=== PATIENT | male | born 1990 | race Caucasian/White ===

== ENCOUNTER 2022-05-19 20:14 | Emergency (ER) | payer OTHER ==
[2022-05-19 20:33] VITALS: TEMP 97.3
[2022-05-19] MEDS ORDERED: SODIUM CHLORIDE 0.9% 1,000 ML IV STA (21:20)
[2022-05-19] MEDS ORDERED: ONDANSETRON 4 MG/2 ML VIAL IVP STA (21:21)
[2022-05-19 21:57] LABS: Basophils # (A) 0.1 k/uL (0-0.2); Basophils % (A) 0 %; Eosinophils # (A) 0.2 k/uL (0-0.7); Eosinophils % (A) 1 %; HCT 44.5 % (39.0-53.0); HGB 14.8 gm/dL (13.0-17.5); Lymphocytes # (A) 0.9 k/uL (1.0-4.8); Lymphocytes % (A) 6 %; MCH 28.6 pg (25.0-35.0); MCHC 33.3 g/dL (31.0-37.0); MCV 85.8 fL (80.0-100.0); Mean Platelet Volume 7.7; Monocytes # (A) 0.8 k/uL (0-1.0); Monocytes % (A) 5 %; Neutrophils # (A) 13.7 k/uL (1.3-7.7); Neutrophils % (A) 87 %; Platelet Count 241 k/uL (150-450); RBC 5.19 m/uL (4.30-5.90); RDW 13.6 % (11.5-15.5); WBC 15.7 k/uL (3.8-10.6)
--- NOTE | 2022-05-19 22:06 | XR ---
EXAMINATION TYPE: XR chest 2V DATE OF EXAM: 05/19/2022 COMPARISON: NONE HISTORY: Syncope TECHNIQUE: 2 views FINDINGS: Heart and mediastinum are normal. Lungs are clear. Diaphragm is normal. Bony thorax is inta ct IMPRESSION: Normal chest.
[2022-05-19 22:08] LABS: ALT 67 U/L (4-49); AST 34 U/L (17-59); African American GFR (CKD) >90 (>60 ml/min/1.73 sqM); Albumin 4.2 g/dL (3.5-5.0); Alkaline Phosphatase 71 U/L (38-126); Anion Gap 6 mmol/L; Blood Urea Nitrogen 17 mg/dL (9-20); Calcium 8.7 mg/dL (8.4-10.2); Carbon Dioxide 25 mmol/L (22-30); Chloride 107 mmol/L (98-107); Glucose 95 mg/dL (74-99); Non-African American GFR(CKD) 89 (>60 ml/min/1.73 sqM); Potassium 4.1 mmol/L (3.5-5.1); Sodium 138 mmol/L (137-145); Total Bilirubin 0.4 mg/dL (0.2-1.3); Total Protein 7.1 g/dL (6.3-8.2)
[2022-05-19 22:18] LABS: Prothrombin Time 10.9 sec (9.0-12.0)
[2022-05-19 22:19] LABS: Partial Thromboplastin Time 18.7 sec (22.0-30.0)
[2022-05-19] MEDS ORDERED: ONDANSETRON 4 MG ODT STARTER PACK 2 TAB BTL PO STA (22:46)
--- NOTE | 2022-05-19 22:46 | ED ---
General Adult HPI - General Chief complaint: Syncope Stated complaint: Dizziness Time Seen by Provider: 05/19/22 21:00 Source: patient Mode of arrival: EMS Limitations: no limitations - History of Present Illness Initial comments: 32-year-old male presents emergency room and after he had a syncopal episode. States that [place] when he passed out. States that he was on a bench when it happened. He felt very dizzy and then went unconscious. Patient denies injuring himself. He was only out for a few seconds. When he came to, he was extremely nauseated and vomited. States that he has not been eating or drinking well for the past several days. He denies any headaches or visual changes. No chest pain or shortness of breath. No abdominal pain. No history of cardiac disease. No family history of sudden cardiac . No other alleviating, precipitating or modifying factors - Related Data Home Medications Medication Instructions Recorded Confirmed No Known Home Medications 05/19/22 05/19/22 Allergies Allergy/AdvReac Type Severity Reaction Status Date / Time No Known Allergies Allergy Unverified 05/19/22 21:29 Review of Systems ROS Statement: Those systems with pertinent positive or pertinent negative responses have been documented in the HPI. ROS Other: All systems not noted in ROS Statement are negative. Past Medical History Past Medical History: No Reported History History of Any Multi-Drug Resistant Organisms: None Reported Past Surgical History: No Surgical Hx Reported Past Psychological History: No Psychological Hx Reported General Exam Limitations: no limitations General appearance: alert, in no apparent distress Head exam: Present: atraumatic, normocephalic, normal inspection Eye exam: Present: normal appearance, PERRL, EOMI. Absent: scleral icterus, conjunctival injection, periorbital swelling ENT exam: Present: normal exam, mucous membranes moist Neck exam: Present: normal inspection. Absent: tenderness, meningismus, lymphadenopathy Respiratory exam: Present: normal lung sounds bilaterally. Absent: respiratory distress, wheezes, rales, rhonchi, stridor Cardiovascular Exam: Present: regular rate, normal rhythm, normal heart sounds. Absent: systolic murmur, diastolic murmur, rubs, gallop, clicks GI/Abdominal exam: Present: soft, normal bowel sounds. Absent: distended, te nderness, guarding, rebound, rigid Extremities exam: Present: normal inspection, full ROM, normal capillary refill. Absent: tenderness, pedal edema, joint swelling, calf tenderness Back exam: Present: normal inspection Neurological exam: Present: alert, oriented X3, CN II-XII intact Psychiatric exam: Present: normal affect, normal mood Skin exam: Present: warm, dry, intact, normal color. Absent: rash Course Vital Signs 05/19/22 05/19/22 20:30 23:15 Temperature 97.3 F L Pulse Rate 80 89 Respiratory 14 20 Rate Blood Pressure 127/87 131/97 O2 Sat by Pulse 99 98 Oximetry EKG Findings - EKG Comments: EKG Findings:: EKG demonstrates sinus rhythm with a rate of 76. IL interval 156. QRS 96. QTC of 425. No acute ST segment elevations or depressions. No signs of Ozhbr-Otuckzggh-Iizss or Brugada syndrome Medical Decision Making - Medical Decision Making Upon arrival the patient was placed into a trauma 1. A thorough history and physical exam was performed. IV access established laboratory studies were conducted. Patient is given something for nausea. Evidently studies are conducted and reviewed. Chest x-rays performed. Results are discussed with the patient. He states he feels improved at this time and feels comfortable going home. He is instructed to follow up with any new or worsening symptoms. Patient was agreeable and discharged home in stable condition - Lab Data Result diagrams: 05/19/22 21:46 05/19/22 21:46 Lab Results 05/19/22 05/19/22 05/19/22 Range/Units 21:46 21:46 21:46 WBC 15.7 H (3.8-10.6) k/uL RBC 5.19 (4.30-5.90) m/uL Hgb 14.8 (13.0-17.5) gm/dL Hct 44.5 (39.0-53.0) % MCV 85.8 (80.0-100.0) fL MCH 28.6 (25.0-35.0) pg MCHC 33.3 (31.0-37.0) g/dL RDW 13.6 (11.5-15.5) % Plt Count 241 (150-450) k/uL MPV 7.7 Neutrophils % 87 % Lymphocytes % 6 % Monocytes % 5 % Eosinophils % 1 % Basophils % 0 % Neutrophils # 13.7 H (1.3-7.7) k/uL Lymphocytes # 0.9 L (1.0-4.8) k/uL Monocytes # 0.8 (0-1.0) k/uL Eosinophils # 0.2 (0-0.7) k/uL Basophils # 0.1 (0-0.2) k/uL PT 10.9 (9.0-12.0) sec INR 1.0 (<1.2) APTT 18.7 L (22.0-30.0) sec Sodium 138 (137-145) mmol/L Potassium 4.1 (3.5-5.1) mmol/L Chloride 107 (98-107) mmol/L Carbon Dioxide 25 (22-30) mmol/L Anion Gap 6 mmol/L BUN 17 (9-20) mg/dL Creatinine 1.10 (0.66-1.25) mg/dL Est GFR (CKD-EPI)AfAm >90 (>60 ml/min/1.73 sqM) Est GFR (CKD-EPI)NonAf 89 (>60 ml/min/1.73 sqM) Glucose 95 (74-99) mg/dL Calcium 8.7 (8.4-10.2) mg/dL Total Bilirubin 0.4 (0.2-1.3) mg/dL AST 34 (17-59) U/L ALT 67 H (4-49) U/L Alkaline Phosphatase 71 (38-126) U/L Troponin I (0.000-0.034) ng/mL Total Protein 7.1 (6.3-8.2) g/dL Albumin 4.2 (3.5-5.0) g/dL 05/19/22 Range/Units 21:46 WBC (3.8-10.6) k/uL RBC (4.30-5.90) m/uL Hgb (13.0-17.5) gm/dL Hct (39.0-53.0) % MCV (80.0-100.0) fL MCH (25.0-35.0) pg MCHC (31.0-37.0) g/dL RDW (11.5-15.5) % Plt Count (150-450) k/uL MPV Neutrophils % % Lymphocytes % % Monocytes % % Eosinophils % % Basophils % % Neutrophils # (1.3-7.7) k/uL Lymphocytes # (1.0-4.8) k/uL Monocytes # (0-1.0) k/uL Eosinophils # (0-0.7) k/uL Basophils # (0-0.2) k/uL PT (9.0-12.0) sec INR (<1.2) APTT (22.0-30.0) sec Sodium (137-145) mmol/L Potassium (3.5-5.1) mmol/L Chloride (98-107) mmol/L Carbon Dioxide (22-30) mmol/L Anion Gap mmol/L BUN (9-20) mg/dL Creatinine (0.66-1.25) mg/dL Est GFR (CKD-EPI)AfAm (>60 ml/min/1.73 sqM) Est GFR (CKD-EPI)NonAf (>60 ml/min/1.73 sqM) Glucose (74-99) mg/dL Calcium (8.4-10.2) mg/dL Total Bilirubin (0.2-1.3) mg/dL AST (17-59) U/L ALT (4-49) U/L Alkaline Phosphatase (38-126) U/L Troponin I <0.012 (0.000-0.034) ng/mL Total Protein (6.3-8.2) g/dL Albumin (3.5-5.0) g/dL Disposition Clinical Impression: Syncope and collapse Disposition: HOME SELF-CARE Condition: Stable Instructions (If sedation given, give patient instructions): Syncope (ED) Additional Instructions: Increase your fluid intake. Follow up with your primary care doctor in 2-4 days and return for any new or worsening symptoms Is patient prescribed a controlled substance at d/c from ED?: No Referrals: None,Stated [Primary Care Provider] - 1-2 days Time of Disposition: 22:46
[2022-05-19 23:16] VITALS: BP 131/97; PULSE 89; RESP 20
== END 2022-05-19 23:16 | disposition home or self-care (01) ==
LOC: EC 20:14
DX: R55 Syncope and collapse (principal)
CPT/HCPCS: 36415; 93005; 80053; 84484; 85025; 85610; 85730; 71046; 99285; 96374; 96361; J2405; S0119

== ENCOUNTER 2024-01-15 15:43 | Observation (INO) | payer OTHER ==
--- NOTE | 2024-01-15 16:05 | ED ---
General Adult HPI - General Stated complaint: Syncope/cardiac issues Time Seen by Provider: 01/15/24 15:49 Source: patient, EMS, RN notes reviewed, old records reviewed Limitations: no limitations - History of Present Illness Initial comments: 33-year-old male presenting with an episode of syncope. Patient states he did donate plasma earlier today. He had gone home when he began feeling lightheaded. He had passed out. When he awoke he felt nausea and had 1 episode of vomiting. No chest pain. He states he has had episodes similar to this in the past associated with donating plasma. During transport paramedics states he had several episodes where he became diaphoretic and had an episode of v entricular fibrillation. He remained alert during this but was symptomatic. No prior history of arrhythmia. He had a similar episode during transport where he was noted to be bradycardic. Uncertain if the ventricular fibrillation was artifact. - Related Data Home Medications Medication Instructions Recorded Confirmed No Known Home Medications 05/19/22 01/15/24 Allergies Allergy/AdvReac Type Severity Reaction Status Date / Time No Known Allergies Allergy Verified 01/15/24 16:16 Review of Systems ROS Statement: Those systems with pertinent positive or pertinent negative responses have been documented in the HPI. ROS Other: All systems not noted in ROS Statement are negative. Past Medical History Past Medical History: No Reported History History of Any Multi-Drug Resistant Organisms: None Reported Past Surgical History: No Surgical Hx Reported Past Psychological History: No Psychological Hx Reported General Exam General appearance: alert, in no apparent distress Head exam: Present: atraumatic, normocephalic Eye exam: Present: normal appearance, PERRL ENT exam: Present: normal exam Neck exam: Present: normal inspection. Absent: tenderness, meningismus Respiratory exam: Present: normal lung sounds bilaterally. Absent: respiratory distress, wheezes Cardiovascular Exam: Present: regular rate, normal rhythm GI/Abdominal exam: Present: soft. Absent: distended, tenderness Extremities exam: Present: normal inspection, normal capillary refill Neurological exam: Present: alert, oriented X3, CN II-XII intact. Absent: motor sensory deficit Psychiatric exam: Present: normal affect, normal mood Skin exam: Present: warm, dry, intact Course Vital Signs 01/15/24 01/15/24 15:43 16:28 Pulse Rate 81 62 Respiratory 16 20 Rate Blood Pressure 105/92 115/63 O2 Sat by Pulse 98 97 Oximetry Medical Decision Making - Medical Decision Making Was pt. sent in by a medical professional or institution ([facility]re[facility], [employer]WORK ENGINEER, urgent care, hospital, or snf...) When possible be specific @ -No Did you speak to anyone other than the patient for history (EMS, parent, family, police, friend...)? What history was obtained from this source @ -No Did you review nursing and triage notes (agree or disagree)? Why? @ -I reviewed and agree with nursing and triage notes Were old charts reviewed (outside hosp., previous admission, EMS record, old EKG, old radiological studies, urgent care reports/EKG's, snf records)? Report findings @ -No old charts were reviewed Differential Diagnosis (chest pain, altered mental status, abdominal pain women, abdominal pain men, vaginal bleeding, weakness, fever, dyspnea, syncope, headache, dizziness, GI bleed, back pain, seizure, CVA, palpatations, mental health, musculoskeletal)? @Differential Syncope: Valvular disease, hypertrophic cardiomyopathy, pulmonary embolism, tamponade, tachycardia, bradycardia, FL, hypovolemia, hemorrhage, dissection, anemia, intracranial hemorrhage, seizure, hypoglycemia, carbon monoxide poisoning, this is not meant to be an all-inclusive list. EKG interpreted by me (3pts min.). @ -Sinus rhythm rate of 66, TN interval 159, QRS duration 90, QTc [address] segment elevation. T waves are upright. X-rays interpreted by me (1pt min.). @Chest x-ray negative for acute cardiopulmonary findings. CT interpreted by me (1pt min.). @ -None done U/S interpreted by me (1pt. min.). @ -None done What testing was considered but not performed or refused? (CT, X-rays, U/S, labs)? Why? @ -None What meds were considered but not given or refused? Why? @ -None Did you discuss the management of the patient with other professionals (professionals i.e. [facility] Contreras, [employer] SAL[employer]WORK ENGINEER, lab, RT, psych nurse, aids social worker, row boss, teacher, business services officer, case repairer)? Give summary @Discussed with Dr. Elvin davison for cardiology, recommends echo and telemetry monitoring. Patient admitted to Dr. Crews. Was smoking cessation discussed for >3mins.? @ -No Was critical care preformed (if so, how long)? @ -No Were there social determinants of health that impacted care today? How? (Homelessness, low income, unemployed, alcoholism, drug addiction, transportation, low edu. Level, literacy, decrease access to med. care, residential, rehab)? @ -No Was there de-escalation of care discussed even if they declined (Discuss DNR or withdrawal of care, Hospice)? DNR status @ -No What co-morbidities impacted this encounter? (DM, HTN, Smoking, COPD, CAD, Cancer, CVA, ARF, Chemo, Hep., AIDS, mental health diagnosis, sleep apnea, morbid obesity)? @ -None Was patient admitted / discharged? Hospital course, mention meds given and route, prescriptions, significant lab abnormalities, going to OR and other pertinent info. @ -33-year-old male with syncopal episode after donating plasma. Patient was thought by paramedics to possibly be in a ventricular fibrillation. They state that he was symptomatic but alert during this episode. This may be artifactual. Patient will be monitored on telemetry to ensure no further arrhythmia. He remains in sinus rhythm throughout his stay in the emergency department with several episodes of lightheadedness and nausea vomiting. He has no chest pain. Chest x-ray is clear without acute findings. He has a elevated hemoglobin I suspect this is from dehydration. Normal electrolytes, negative initial tropo zane. I did discuss case with cardiology and the admitting physician. Undiagnosed new problem with uncertain prognosis? @ -No Drug Therapy requiring intensive monitoring for toxicity (Heparin, Nitro, Insulin, Cardizem)? @ -No Were any procedures done? @ -No Diagnosis/symptom? @ -Syncope, dehydration, possible arrhythmia Acute, or Chronic, or Acute on Chronic? @ -Acute Uncomplicated (without systemic symptoms) or Complicated (systemic symptoms)? @ -Default Side effects of treatment? @ -No Exacerbation, Progression, or Severe Exacerbation? @ -No Poses a threat to life or bodily function? How? (Chest pain, USA, FL, pneumonia, PE, COPD, DKA, ARF, appy, cholecystitis, CVA, Diverticulitis, Homicidal, Suicidal, threat to staff... and all critical care pts) @ -Yes, syncope, arrhythmia - Lab Data Result diagrams: 01/15/24 15:29 01/15/24 15:29 Lab Results 01/15/24 01/15/24 01/15/24 Range/Units 15:29 15:29 15:29 WBC 6.2 (3.8-10.6) k/uL RBC 6.29 H (4.30-5.90) m/uL Hgb 17.9 H (13.0-17.5) gm/dL Hct 53.5 H (39.0-53.0) % MCV 85.1 (80.0-100.0) fL MCH 28.4 (25.0-35.0) pg MCHC 33.4 (31.0-37.0) g/dL RDW 13.6 (11.5-15.5) % Plt Count 313 (150-450) k/uL MPV 8.5 Neutrophils % 52 % Lymphocytes % 31 % Monocytes % 7 % Eosinophils % 5 % Basophils % 1 % Neutrophils # 3.3 (1.3-7.7) k/uL Lymphocytes # 1.9 (1.0-4.8) k/uL Monocytes # 0.4 (0-1.0) k/uL Eosinophils # 0.3 (0-0.7) k/uL Basophils # 0.1 (0-0.2) k/uL PT 11.1 (10.0-12.5) sec INR 1.0 (<1.2) APTT 21.6 L (22.0-30.0) sec Sodium 140 (137-145) mmol/L Potassium 5.2 H (3.5-5.1) mmol/L Chloride 114 H (98-107) mmol/L Carbon Dioxide 17 L (22-30) mmol/L Anion Gap 9 mmol/L BUN 17 (9-20) mg/dL Creatinine 0.90 (0.66-1.25) mg/dL Est GFR (CKD-EPI)AfAm >90 (>60 ml/min/1.73 sqM) Est GFR (CKD-EPI)NonAf >90 (>60 ml/min/1.73 sqM) Glucose 114 H (74-99) mg/dL Calcium 8.8 (8.4-10.2) mg/dL Magnesium 1.7 (1.6-2.3) mg/dL Total Bilirubin 0.9 (0.2-1.3) mg/dL AST 32 (17-59) U/L ALT 25 (4-49) U/L Alkaline Phosphatase 50 (38-126) U/L Troponin I (0.000-0.034) ng/mL Total Protein 6.4 (6.3-8.2) g/dL Albumin 3.9 (3.5-5.0) g/dL 01/15/24 Range/Units 15:29 WBC (3.8-10.6) k/uL RBC (4.30-5.90) m/uL Hgb (13.0-17.5) gm/dL Hct (39.0-53.0) % MCV (80.0-100.0) fL MCH (25.0-35.0) pg MCHC (31.0-37.0) g/dL RDW (11.5-15.5) % Plt Count (150-450) k/uL MPV Neutrophils % % Lymphocytes % % Monocytes % % Eosinophils % % Basophils % % Neutrophils # (1.3-7.7) k/uL Lymphocytes # (1.0-4.8) k/uL Monocytes # (0-1.0) k/uL Eosinophils # (0-0.7) k/uL Basophils # (0-0.2) k/uL PT (10.0-12.5) sec INR (<1.2) APTT (22.0-30.0) sec Sodium (137-145) mmol/L Potassium (3.5-5.1) mmol/L Chloride (98-107) mmol/L Carbon Dioxide (22-30) mmol/L Anion Gap mmol/L BUN (9-20) mg/dL Creatinine (0.66-1.25) mg/dL Est GFR (CKD-EPI)AfAm (>60 ml/min/1.73 sqM) Est GFR (CKD-EPI)NonAf (>60 ml/min/1.73 sqM) Glucose (74-99) mg/dL Calcium (8.4-10.2) mg/dL Magnesium (1.6-2.3) mg/dL Total Bilirubin (0.2-1.3) mg/dL AST (17-59) U/L ALT (4-49) U/L Alkaline Phosphatase (38-126) U/L Troponin I 0.013 (0.000-0.034) ng/mL Total Protein (6.3-8.2) g/dL Albumin (3.5-5.0) g/dL Critical Care Time Critical Care Time: Yes Total Critical Care Time: 35 Disposition Clinical Impression: Syncope, Dehydration Disposition: ADMITTED IP TO THIS [facility] Condition: Stable Is patient prescribed a controlled substance at d/c from ED?: No Referrals: None,Stated [Primary Care Provider] - 1-2 days Time of Disposition: 16:58
[2024-01-15] MEDS: ONDANSETRON 4 MG/2 ML VIAL IVP STA (16:12)
[2024-01-15] MEDS: SODIUM CHLORIDE 0.9% 500 ML 500 ML IV STA (16:13)
[2024-01-15] MEDS: SODIUM CHLORIDE 0.9% 500 ML 500 ML IV ONE (16:13)
[2024-01-15 16:26] LABS: ALT 25 U/L (4-49); AST 32 U/L (17-59); African American GFR (CKD) >90 (>60 ml/min/1.73 sqM); Albumin 3.9 g/dL (3.5-5.0); Alkaline Phosphatase 50 U/L (38-126); Anion Gap 9 mmol/L; Blood Urea Nitrogen 17 mg/dL (9-20); Calcium 8.8 mg/dL (8.4-10.2); Carbon Dioxide 17 mmol/L (22-30); Chloride 114 mmol/L (98-107); Glucose 114 mg/dL (74-99); Magnesium 1.7 mg/dL (1.6-2.3); Non-African American GFR(CKD) >90 (>60 ml/min/1.73 sqM); Sodium 140 mmol/L (137-145); Total Bilirubin 0.9 mg/dL (0.2-1.3); Total Protein 6.4 g/dL (6.3-8.2)
[2024-01-15 16:31] LABS: Basophils # (A) 0.1 k/uL (0-0.2); Basophils % (A) 1 %; Eosinophils # (A) 0.3 k/uL (0-0.7); Eosinophils % (A) 5 %; HCT 53.5 % (39.0-53.0); HGB 17.9 gm/dL (13.0-17.5); Lymphocytes # (A) 1.9 k/uL (1.0-4.8); Lymphocytes % (A) 31 %; MCH 28.4 pg (25.0-35.0); MCHC 33.4 g/dL (31.0-37.0); MCV 85.1 fL (80.0-100.0); Mean Platelet Volume 8.5; Monocytes # (A) 0.4 k/uL (0-1.0); Monocytes % (A) 7 %; Neutrophils # (A) 3.3 k/uL (1.3-7.7); Neutrophils % (A) 52 %; Platelet Count 313 k/uL (150-450); RBC 6.29 m/uL (4.30-5.90); RDW 13.6 % (11.5-15.5); WBC 6.2 k/uL (3.8-10.6)
[2024-01-15 16:37] LABS: Prothrombin Time 11.1 sec (10.0-12.5)
[2024-01-15 16:41] LABS: Potassium 5.2 mmol/L (3.5-5.1)
[2024-01-15 16:42] LABS: Partial Thromboplastin Time 21.6 sec (22.0-30.0)
[2024-01-15] MEDS: LORazepam 2 MG/ML INJ IV STA (16:47)
[2024-01-15] MEDS ORDERED: NALOXONE 0.4 MG/ML 1 ML VIAL IV PRN (16:58)
[2024-01-15] MEDS ORDERED: ACETAMINOPHEN TAB 325 MG TAB PO PRN (16:58)
--- NOTE | 2024-01-15 18:32 | CA ---
Transthoracic Echo Report Name: Albert Mann Age: 33 Gender: M : 1990 Exam Date: 01/15/2024 16:59 Exam Location: [place] [facility] Ht (in): 69 Wt (lb): 220 Ordering Physician: Juan Perdomo MD Attending/Referring Phys: [id number], Conor Greens Tier Mary Echols RCS Procedure CPT: Indications: Syncope Cardiac Hx: Technical Quality: Fair Contrast 1: Total Dose (mL): Contrast 2: Total Dose (mL): MEASUREMENTS (Male / Female) Normal Values 2D ECHO LV Diastolic Diameter PLAX 4.0 cm 4.2 - 5.9 / 3.9 - 5.3 cm LV Systolic Diameter PLAX 2.8 cm IVS Diastolic Thickness 0.9 cm 0.6 - 1.0 / 0.6 - 0.9 cm LVPW Diastolic Thickness 0.9 cm 0.6 - 1.0 / 0.6 - 0.9 cm LV Relative Wall Thickness 0.5 RV Internal Dim ED PLAX 3.1 cm LVOT Diameter 2.1 cm LV Diastolic Volume MOD BP 86.0 cm??? 67 - 155 / 56 - 104 cm??? LV Systolic Volume MOD BP 33.3 cm??? 22 - 58 / 19 - 49 cm??? LV Ejection Fraction MOD BP 61.3 % >= 55 % LV Cardiac Index MOD BP 1603.6 cm???/min???m??? LV Diastolic Volume MOD 4C 90.5 cm??? LV Systolic Volume MOD 4C 33.6 cm??? LV Ejection Fraction MOD 4C 62.8 % LV Cardiac Index MOD 4C 1728.4 cm???/min???m??? LV Diastolic Length 4C 8.8 cm LV Systolic Length 4C 7.6 cm LV Diastolic Volume MOD 2C 79.6 cm??? LV Systolic Volume MOD 2C 32.0 cm??? LV Ejection Fraction MOD 2C 59.8 % LV Cardiac Index MOD 2C 1448.1 cm???/min???m??? LV Diastolic Length 2C 9.1 cm LV Systolic Length 2C 7.9 cm LA Volume 29.7 cm??? 18 - 58 / 22 - 52 cm??? LA Volume Index 13.3 cm???/m??? 16 - 28 cm???/m??? DOPPLER AV Peak Velocity 104.9 cm/s AV Peak Gradient 4.4 mmHg AV Mean Velocity 72.5 cm/s AV Mean Gradient 2.4 mmHg AV Velocity Time Integral 21.1 cm LVOT Peak Velocity 98.5 cm/s LVOT Peak Gradient 3.9 mmHg LVOT Velocity Time Integral 19.2 cm LVOT Stroke Volume 66.7 cm??? LVOT Stroke Volume Index 31.0 ml/m??? LVOT Cardiac Index 2029.1 cm???/min???m??? AV Area Cont Eq vti 3.2 cm??? AV Area Cont Eq pk 3.3 cm??? MV Area PHT 3.8 cm??? Mitral E Point Velocity 63.3 cm/s Mitral A Point Velocity 40.7 cm/s Mitral E to A Ratio 1.6 MV Deceleration Time 202.0 ms PV Peak Velocity 99.0 cm/s PV Peak Gradient 3.9 mmHg FINDINGS Left Ventricle Left ventricular ejection fraction is estimated at 60-65 %. Left ventricular cavity size normal. Left ventricular wall thickness normal. No obvious regional wall motion abnormalities. Right Ventricle Normal right ventricular size and function. Unable to estimate right ventricular systolic function. Right Atrium Normal right atrial size by visual. Left Atrium Normal left atrial size. Mitral Valve Structurally normal mitral valve. No evidence for mitral valve prolapse. No mitral stenosis. No mitral regurgitation. Aortic Valve Trileaflet aortic valve. No aortic stenosis. No aortic regurgitation. Tricuspid Valve Structurally normal tricuspid valve. No tricuspid stenosis. Trace tricuspid regurgitation. Pulmonic Valve Structurally normal pulmonic valve. No pulmonic stenosis. Trace pulmonic regurgitation. Pericardium No pericardial effusion. Aorta Normal size aortic root and proximal ascending aorta. CONCLUSIONS Normal LV size and systolic function. LVEF 65% No obvious regional wall motion abnormality Normal RV size and systolic function. No significant valve dysfunction No pericardial effusion Previewed by: Dr Dl Oconnor (Electronically Signed) Final Date: 15 January 2024 18:32
[2024-01-15] MEDS: SODIUM CHLORIDE 0.9% 1,000 ML IV SCH (19:32)
--- NOTE | 2024-01-15 20:12 | XR ---
EXAMINATION TYPE: XR chest 1V portable DATE OF EXAM: 01/15/2024 COMPARISON: 05/19/2022 INDICATION: Syncope TECHNIQUE: Single frontal view of the chest is obtained. FINDINGS: The heart size is normal. The pulmonary vasculature is normal. The lungs are clear. IMPRESSION: 1. No acute pulmonary process.
[2024-01-15 22:49] VITALS: TEMP 98
[2024-01-16 08:22] VITALS: RESP 20
--- NOTE | 2024-01-16 08:31 | P.CRDCN ---
History of Present Illness Consult date: 01/16/24 History of present illness: HISTORY OF PRESENTING ILLNESS 33-year-old male with no significant past medical history presented to the ER because of a brief syncopal episode while doing plasma donation. Patient reports by the end of plasma donation he was feeling lightheaded and briefly passed out. The lasting he remembers was asking the nurse to help him get up, and the next and he remembers is the nurse standing at the head end of the bed helping him. He reported that he must have passed out for less than a minute. He did not have any palpitations before and after the event. He denied having any chest pain chest pressure. Patient reported that he has donated plasma in the past and he has had an episode of lightheadedness and a brief syncopal episode at that time. During transport EMS reported that patient had few instances of having diaphoresis and feeling uncomfortable and moving. ECG prescription reported ventricular fibrillation. Patient never lost pulse. There was no reported CPR done. I did not find any rhythm strips to review but from ER physicians description the looked more like artifact. I performed an echocardiogram which did not show any concerns of LVOT obstruction no concerns of hypertrophic cardiomyopathy or ARVD. His ECG sinus rhythm with no concerns of Brugada or long QT syndrome. Patient denies any family history of premature coronary artery disease or sudden cardiac . He denies any childhood long-term illness. Is never passed out while playing sports. His labs were normal other than hemoglobin 17.9. This could be due to dehydration. OF SYSTEMS 14 point review of system is negative except what is mentioned above in HPI. PHYSICAL EXAMINATION Vital signs reviewed. Head: Normocephalic. Eyes: Sclerae nonicteric. Neck: Brisk carotid upstroke, no jugular venous distention. Lungs: Clear to auscultation. Heart: Regular rate and rhythm, S1-S2, no S3, no murmur or rub. Abdomen: Soft nontender, positive bowel sounds. Extremities: No edema, intact distal pulses. Neuro: Alert, oritented, no focal deficits. Detailed neuro exam was not performed. ASSESSMENT Brief syncope during plasma donation Questionable history of ventricular fibrillation which is most likely artifact Obesity Polycythemia, likely dehydration related PLAN Patient is cleared to be discharged from cardiovascular standpoint. His syncope was brief and was most likely vasovagal during plasma donation. He has had this before while doing plasma donation. He does not have any high risk findings on echocardiogram ECG or has any family history of premature coronary artery disease or sudden cardiac . Will do a 14-day event monitor. He can tack picker the event monitor from a clinic. Detailed instructions were provided. Recommend PCP to follow-up on polycythemia outpatient Dl Oconnor MD, FACC, RPVI Thank you for allowing [facility] to participate in this patient's care. Feel free to reach out in case of any followup questions. Past Medical History Past Medical History: No Reported History History of Any Multi-Drug Resistant Organisms: None Reported Past Surgical History: No Surgical Hx Reported Additional Past Surgical History / Comment(s): wisdom teeth pulled 09/2023 Past Anesthesia/Blood Transfusion Reactions: No Reported Reaction Past Psychological History: No Psychological Hx Reported Smoking Status: Never smoker Past Alcohol Use History: None Reported Past Drug Use History: Marijuana Medications and Allergies Home Medications Medication Instructions Recorded Confirmed Type No Known Home Medications 05/19/22 01/15/24 History Allergies Allergy/AdvReac Type Severity Reaction Status Date / Time No Known Allergies Allergy Verified 01/15/24 16:16 Physical Exam Vitals: Vital Signs Temp Pulse Pulse Resp BP BP Pulse Ox 01/16/24 07:58 98.0 F 95 20 125/79 97 01/16/24 04:00 101 H 16 118/78 91 L 01/15/24 23:58 77 16 111/71 94 L 01/15/24 21:55 98.0 F 93 16 115/78 98 01/15/24 19:31 77 19 121/78 99 01/15/24 18:00 61 16 110/61 98 01/15/24 17:28 66 16 101/88 99 01/15/24 16:28 62 20 115/63 97 01/15/24 15:43 81 16 105/92 98 Intake and Output 01/15/24 01/16/24 01/16/24 22:59 06:59 14:59 Other: Voiding Method Toilet Toilet Weight 100 kg Results 01/15/24 15:29 01/15/24 15:29 Cardiac Enzymes 01/15/24 01/15/24 01/15/24 Range/Units 15:29 15:29 17:39 AST 32 (17-59) U/L Troponin I 0.013 <0.012 (0.000-0.034) ng/mL 01/15/24 Range/Units 21:14 AST (17-59) U/L Troponin I <0.012 (0.000-0.034) ng/mL Coagulation 01/15/24 Range/Units 15:29 PT 11.1 (10.0-12.5) sec APTT 21.6 L (22.0-30.0) sec CBC 01/15/24 Range/Units 15:29 WBC 6.2 (3.8-10.6) k/uL RBC 6.29 H (4.30-5.90) m/uL Hgb 17.9 H (13.0-17.5) gm/dL Hct 53.5 H (39.0-53.0) % Plt Count 313 (150-450) k/uL Comprehensive Metabolic Panel 01/15/24 Range/Units 15:29 Sodium 140 (137-145) mmol/L Potassium 5.2 H (3.5-5.1) mmol/L Chloride 114 H (98-107) mmol/L Carbon Dioxide 17 L (22-30) mmol/L BUN 17 (9-20) mg/dL Creatinine 0.90 (0.66-1.25) mg/dL Glucose 114 H (74-99) mg/dL Calcium 8.8 (8.4-10.2) mg/dL AST 32 (17-59) U/L ALT 25 (4-49) U/L Alkaline Phosphatase 50 (38-126) U/L Total Protein 6.4 (6.3-8.2) g/dL Albumin 3.9 (3.5-5.0) g/dL Current Medications Generic Name Dose Route Start Last Admin Trade Name Freq PRN Reason Stop Dose Admin Acetaminophen 650 mg 01/15/24 16:58 Acetaminophen Tab 325 Mg Tab PO Q6HR PRN Mild Pain or Fever > 100.5 Sodium Chloride 1,000 mls @ 75 mls/hr 01/15/24 17:00 01/16/24 06:13 Saline 0.9% IV 75 mls/hr .[id number] TASIA Administration Naloxone HCl 0.2 mg 01/15/24 16:58 Naloxone 0.4 Mg/Ml 1 Ml Vial IV Q2M PRN Opioid Reversal Intake and Output 03/01/16/24 01/16/24 22:59 06:59 14:59 Other: Voiding Method Toilet Toilet Weight 100 kg 01/15/24 15:29 01/15/24 15:29
[2024-01-16 12:27] VITALS: BP 116/73; PULSE 80
--- NOTE | 2024-01-16 16:31 | P.HPIM ---
History of Present Illness H&P Date: 01/16/24 Chief Complaint: Acute syncope 33-year-old male presenting with an episode of syncope. Patient states he did donate plasma earlier today. He had gone home when he began feeling lightheaded. He had passed out. When he awoke he felt nausea and had 1 episode of vomiting. No chest pain. He states he has had episodes similar to this in the past associated with donating plasma. During transport paramedics states he had several episodes where he became diaphoretic and had an episode of ventricular fibrillation. He remained alert during this but was symptomatic. No prior history of arrhythmia. He had a similar episode during transport where he was noted to be bradycardic. Uncertain if the ventricular fibrillation was artifact. EKG-Sinus rhythm rate of 66, TX interval 159, QRS duration 90, QTc [address] segment elevation. T waves are upright. Chest x-ray negative for acute cardiopulmonary findings. Blood work completed in ED reveals a WBC of 6.2, hemoglobin of 17.9 and platelet count of 313, sodium 140, potassium 5.2, BUNs/creatinine of 17/0.90 and blood g lucose of 114, troponin 0.013 Review of Systems REVIEW OF SYSTEMS: CONSTITUTIONAL: No fever, no malaise, no fatigue. HEENT: No recent visual problems or hearing problems. Denied any sore throat. CARDIOVASCULAR: No chest pain, orthopnea, PND, no palpitations, no syncope. PULMONARY: No shortness of breath, no cough, no hemoptysis. GASTROINTESTINAL: No diarrhea, no nausea, no vomiting, no abdominal pain. NEUROLOGICAL: No headaches, no weakness, no numbness. HEMATOLOGICAL: Denies any bleeding or petechiae. GENITOURINARY: Denies any burning micturition, frequency, or urgency. MUSCULOSKELETAL/RHEUMATOLOGICAL: Denies any joint pain, swelling, or any muscle pain. ENDOCRINE: Denies any polyuria or polydipsia. The rest of the 14-point review of systems is negative. Past Medical History Past Medical History: No Reported History History of Any Multi-Drug Resistant Organisms: None Reported Past Surgical History: No Surgical Hx Reported Additional Past Surgical History / Comment(s): wisdom teeth pulled 09/2023 Past Anesthesia/Blood Transfusion Reactions: No Reported Reaction Past Psychological History: No Psychological Hx Reported Smoking Status: Never smoker Past Alcohol Use History: None Reported Past Drug Use History: Marijuana Medications and Allergies Home Medications Medication Instructions Recorded Confirmed Type No Known Home Medications 05/19/22 01/15/24 History Allergies Allergy/AdvReac Type Severity Reaction Status Date / Time No Known Allergies Allergy Verified 01/15/24 16:16 Physical Exam Vitals: Vital Signs Temp Pulse Pulse Resp BP BP Pulse Ox 01/16/24 07:58 98.0 F 95 20 125/79 97 01/16/24 07:54 95 01/16/24 04:00 101 H 16 118/78 91 L 01/15/24 23:58 77 16 111/71 94 L 01/15/24 21:55 98.0 F 93 16 115/78 98 01/15/24 19:31 77 19 121/78 99 01/15/24 18:00 61 16 110/61 98 01/15/24 17:28 66 16 101/88 99 01/15/24 16:28 62 20 115/63 97 01/15/24 15:43 81 16 105/92 98 Intake and Output 01/15/24 01/16/24 01/16/24 22:59 06:59 14:59 Intake Total 240 Balance 240 Intake: Oral 240 Other: Voiding Method Toilet Toilet Toilet # Voids 1 Weight 100 kg Head exam: Present: atraumatic, normocephalic Eye exam: Present: normal appearance, PERRL ENT exam: Present: normal exam Neck exam: Present: normal inspection. Absent: tenderness, meningismus Respiratory exam: Present: normal lung sounds bilaterally. Absent: respiratory distress, wheezes Cardiovascular Exam: Present: regular rate, normal rhythm GI/Abdominal exam: Present: soft. Absent: distended, tenderness Extremities exam: Present: normal inspection, normal capillary refill Neurological exam: Present: alert, oriented X3, CN II-XII intact. Absent: motor sensory deficit Psychiatric exam: Present: normal affect, normal mood Skin exam: Present: warm, dry, intact Results CBC & Chem 7: 01/15/24 15:29 01/15/24 15:29 Labs: Abnormal Lab Results - Last 24 Hours (Table) 01/15/24 01/15/24 01/15/24 Range/Units 15:29 15:29 15:29 RBC 6.29 H (4.30-5.90) m/uL Hgb 17.9 H (13.0-17.5) gm/dL Hct 53.5 H (39.0-53.0) % APTT 21.6 L (22.0-30.0) sec Potassium 5.2 H (3.5-5.1) mmol/L Chloride 114 H (98-107) mmol/L Carbon Dioxide 17 L (22-30) mmol/L Glucose 114 H (74-99) mg/dL Thrombosis Risk Factor Assmnt - Choose All That Apply Any of the Below Risk Factors Present?: No Other Risk Factors: No Other congenital or acquired thrombophilia - If yes, enter type in comment: No Thrombosis Risk Factor Assessment Level: Very Low Risk Assessment and Plan Assessment: 1. Acute syncope -- Patient had a brief syncopal episode during plasma donation; does report similar episode in the past -- Patient has been evaluated by cardiology; syncopal episode likely vasovagal -- Cardiology recommending a 14-day event monitor 2. Dehydration; patient has been placed on IV fluids normal saline at rate of 100 cc an hour 3. Mild hyperkalemia; likely related to dehydration; patient has been placed on IV fluids; recommend follow-up electrolytes as an outpatient 4. Polycythemia; possibly secondary to dehydration, likely hemoconcentration; repeat CBC as an outpatient
--- NOTE | 2024-01-16 16:32 | P.DS ---
Providers Date of admission: 01/15/24 16:59 Expected date of discharge: 01/16/24 Attending physician: Aneesh Crews Consults: 01/15/24 16:58 Consult Physician Routine Consulting Provider: Dl Oconnor Consult Reason/Comments: Syncope Do you want consulting provider notified?: Already Contacted Primary care physician: Stated None Hospital Course: 33-year-old male presenting with an episode of syncope. Patient states he did donate plasma earlier today. He had gone home when he began feeling lightheaded. He had passed out. When he awoke he felt nausea and had 1 episode of vomiting. No chest pain. He states he has had episodes similar to this in the past associated with donating plasma. During transport paramedics states he had several episodes where he became diaphoretic and had an episode of ventricular fibrillation. He remained alert during this but was symptomatic. No prior history of arrhythmia. He had a similar episode during transport where he was noted to be bradycardic. Uncertain if the ventricular fibrillation was artifact. EKG-Sinus rhythm rate of 66, ID interval 159, QRS duration 90, QTc [address] segment elevation. T waves are upright. Chest x-ray negative for acute cardiopulmonary findings. Blood work completed in ED reveals a WBC of 6.2, hemoglobin of 17.9 and platelet count of 313, sodium 140, potassium 5.2, BUNs/creatinine of 17/0.90 and blood glucose of 114, troponin 0.013 1. Acute syncope -- Patient had a brief syncopal episode during plasma donation; does report similar episode in the past -- Patient has been evaluated by cardiology; syncopal episode likely vasovagal -- Cardiology recommending a 14-day event monitor 2. Dehydration; patient has been placed on IV fluids normal saline at rate of 100 cc an hour 3. Mild hyperkalemia; likely related to dehydration; patient has been placed on IV fluids; recommend follow-up electrolytes as an outpatient 4. Polycythemia; possibly secondary to dehydration, likely hemoconcentration; repeat CBC as an outpatient Patient cleared for discharge by cardiology; follow-up for event monitor Patient Condition at Discharge: Stable Plan - Discharge Summary Discharge Rx Participant: No New Discharge Prescriptions: No Action No Known Home Medications Discharge Medication List No Known Home Medications 05/19/22 [History] Follow up Appointment(s)/Referral(s): Dl Oconnor MD [Medical Doctor] - 1 Week (Please call to schedule an appointment with Dr. Elvin HOLM on Wednesday.) None,Stated [Primary Care Provider] - 1-2 days (Please find a PCP and follow up MIHAI.) Patient Instructions/Handouts: Syncope (DC) Discharge Disposition: HOME SELF-CARE
== END 2024-01-16 13:26 | disposition home or self-care (01) ==
LOC: EC 15:43 → 3SCARD 16:59
PROVIDERS: ADMIT Hospitalist; ATTEND Hospitalist
DX: R55 Syncope and collapse (principal); E86.0 Dehydration; D75.1 Secondary polycythemia; E87.5 Hyperkalemia; E66.9 Obesity, unspecified; Z68.32 Body mass index [BMI] 32.0-32.9, adult
CPT/HCPCS: 96361; 96374; 96375; 99291; 36415; 93005; 93306; 80053; 83735; 84484; 85025; 85610; 85730; 71045; G0378 ×2; J2060; J2405